=== PATIENT | male | born 1985 | race Caucasian/White ===

== ENCOUNTER 2017-01-04 19:44 | Emergency (ER) | payer SELFPAY ==
[~2017-01-04] VITALS: Ht 172.7 cm; Wt 61.2 kg
[~2017-01-04 19:44] MED LIST: BACTRIM DS TABL1 TAB PO; KEFLEX PO; VICODIN 5/500 T1 TAB PO
== END 2017-01-07 14:48 | disposition left against medical advice (07) ==
LOC: CED 19:44
DX: Z53.21 Procedure and treatment not carried out due to patient leaving prior to being seen by health care provider (principal)